=== PATIENT | male | born 1940 | race Caucasian/White ===

== ENCOUNTER 2025-02-05 19:48 | Emergency (ER) | payer MEDICARE ==
[2025-02-05] MEDS: methylPREDNISolone Sodium Succinate 125 MG/2 ML SDV IM ONE (21:48)
== END 2025-02-05 22:32 | disposition home or self-care (01) ==
LOC: JP.ED 19:48
DX: M54.31 Sciatica, right side (principal); Z88.8 Allergy status to other drugs, medicaments and biological substances; Z79.890 Hormone replacement therapy; Z87.891 Personal history of nicotine dependence
CPT/HCPCS: 96372; 99283; J2919